=== PATIENT | male | born 1960 | race Caucasian/White ===

== ENCOUNTER → 2016-04-20 | Outpatient (CLI) | payer OTHER ==
--- NOTE | 2016-04-20 10:43 | CPEKG ---
Heart Rate: 55 RR Interval: 1091 P-R Interval: 156 QRSD Interval: 110 QT Interval: 440 QTC Interval: 421 P Duson: 47 QRS Duson: -61 T Wave Duson: 16 EKG Severity - ABNORMAL ECG - EKG Impression: SINUS RHYTHM EKG Impression: LEFT ANTERIOR FASCICULAR BLOCK Electronically Signed By: Arthur Ward 20-Apr-2016 12:57:46
== END ==
LOC: FCP 10:33
PROVIDERS: ATTEND Otolaryngology
DX: Z01.818 Encounter for other preprocedural examination (principal); R94.31 Abnormal electrocardiogram [ECG] [EKG]